=== PATIENT | male | born 1975 | race Caucasian/White ===

== ENCOUNTER → 2023-03-28 | Outpatient (CLI) | payer OTHER, SELFPAY ==
[~2023-03-28] MED LIST: LEVO-70 PO; LIDOCAINE HCL 1% 20 ML VIAL ONE; TAMS-1 PO
[2023-03-28 08:31] LABS: INR 0.96 (0.85-1.15); PROTHROMBIN TIME 10.5 SEC (9.6-11.6)
[2023-03-28 08:33] LABS: PARTIAL THROMBOPLASTIN TIME 29.9 SEC (26.3-35.5)
== END | disposition home or self-care (01) ==
LOC: CANSCHCLI → RAH 07:46
PROVIDERS: ATTEND Otolaryngology Plastic Surgery within the Head & Neck
DX: E04.1 Nontoxic single thyroid nodule (principal); Z79.01 Long term (current) use of anticoagulants
CPT/HCPCS: 10005; 36415; 76942; 85610; 85730; 88173; 88305

== ENCOUNTER → 2023-05-15 | Outpatient (CLI) | payer OTHER ==
[~2023-05-15] VITALS: Ht 175.3 cm; Wt 77.5 kg
[~2023-05-15] MED LIST changes: -LIDOCAINE HCL 1% 20 ML VIAL ONE
[2023-05-15 15:32] LABS: BASOPHILS # (AUTO) 0.06 K/uL (0.00-0.20); BASOPHILS % (AUTO) 1.2 % (0.0-5.0); EOSINOPHILS # (AUTO) 0.06 K/uL (0.00-0.70); EOSINOPHILS % (AUTO) 1.2 % (0.0-8.0); HEMATOCRIT 46.3 % (42-54); IMMATURE GRANULOCYTE ABSOLUTE 0.01 K/uL (0-1); LYMPHOCYTES # (AUTO) 1.7 K/uL (1.0-4.8); LYMPHOCYTES % (AUTO) 32.7 % (21.0-51.0); MEAN CORPUSCULAR HEMOGLOBIN 27.7 pg (27.0-33.0); MEAN CORPUSCULAR HGB CONC 32.6 g/dL (32.0-36.0); MONOCYTES # (AUTO) 0.6 K/uL (0.1-1.0); MONOCYTES % (AUTO) 11.4 % (3.0-13.0); NEUTROPHILS # (AUTO) 2.7 K/uL (1.8-7.7); NEUTROPHILS % (AUTO) 53.3 % (40.0-77.0); PLATELET COUNT (AUTO) 239 K/uL (130-400); RED BLOOD CELL COUNT(AUTO) 5.45 MIL/uL (4.50-6.20); RED CELL DISTRIBUTION WIDTH 13.2 % (11.0-15.5); WHITE BLOOD COUNT (AUTO) 5.1 K/uL (4.8-10.8)
[2023-05-15 15:42] LABS: CREATININE 0.9 mg/dL (0.5-1.5); POTASSIUM 3.9 mmol/L (3.5-5.1)
[2023-05-15 16:29] VITALS: BP 130/80; PULSE 85; RESP 16
== END | disposition home or self-care (01) ==
LOC: DAH 10:00 → EDSTATUS 14:00
PROVIDERS: ATTEND Otolaryngology
DX: Z01.818 Encounter for other preprocedural examination (principal); Z20.822 Contact with and (suspected) exposure to COVID-19; D34 Benign neoplasm of thyroid gland
CPT/HCPCS: 87426; 36415; 80048; 85025; A6260

== ENCOUNTER 2023-06-22 06:23 | Day surgery (SDC) | payer OTHER ==
[2023-06-21 09:19] VITALS: BP 120/77; PULSE 70; RESP 18
[2023-06-22] VITALS (18 sets, daily range): BP systolic 102–130; BP diastolic 63–86; PULSE 16–78; RESP 11–16
[~2023-06-22] VITALS: Ht 175.3 cm; Wt 80.7 kg
[~2023-06-22 06:23] MED LIST changes: -LEVO-70 PO; +VIBE75TA PO
[2023-06-22] MEDS ORDERED: LACTATED RINGERS 1000ML 1,000 ML IV ONE (06:57)
[2023-06-22] MEDS ORDERED: LIDOCAINE 1%-EPI 1:100,000 20 ML VIAL IJ ONE (07:03)
[2023-06-22] MEDS ORDERED: SUCCINYLCHOLINE CHLORIDE 20 MG/ML 10 ML VIAL ONE (07:22)
[2023-06-22] MEDS ORDERED: FENTANYL CITRATE PF 50 MCG/1 ML 2ML VIAL ONE (07:23)
[2023-06-22] MEDS ORDERED: LIDOCAINE PF 100MG/5ML (2%) SYRINGE 5ML ONE (07:23)
[2023-06-22] MEDS ORDERED: MIDAZOLAM HCL 1 MG/ML 2ML VIAL ONE (07:23)
[2023-06-22] MEDS ORDERED: PROPOFOL 10 MG/ML 20ML VIAL IV ONE (07:23)
[2023-06-22] MEDS ORDERED: KETAMINE 50MG/ML SYRINGE 50 MG/ML DISP.SYRIN ONE (07:41)
[2023-06-22] MEDS ORDERED: ROCURONIUM 10MG/1ML SYR 10 MG/ML ML ONE (07:51)
[2023-06-22] MEDS ORDERED: DEXAMETHASONE SOD PHOSPHATE 10MG/ML 1ML VIAL ONE (07:56)
[2023-06-22] MEDS ORDERED: CEFAZOLIN SODIUM 1 GM VIAL ONE ×2 (08:04→08:08)
[2023-06-22] MEDS ORDERED: LIDOCAINE HCL 4% LTA SOL 4 ML VIAL ONE (08:30)
[2023-06-22] MEDS ORDERED: PHENYLEPHRINE HCL 10 MG/ML 1ML VIAL IV ONE (08:43)
[2023-06-22] MEDS ORDERED: ONDANSETRON 4MG INJ ONE ×2 (09:09→09:39)
[2023-06-22] MEDS ORDERED: KETOROLAC 30MG VIAL (30MG/ML) ONE (09:13)
[2023-06-22] MEDS ORDERED: MEPERIDINE-PF 25 MG/ML SYG ONE ×2 (09:39→10:05)
== END 2023-06-22 11:15 | disposition home or self-care (01) ==
LOC: DAH 06:23
PROVIDERS: ATTEND Otolaryngology
DX: D34 Benign neoplasm of thyroid gland (principal); F41.9 Anxiety disorder, unspecified; Z98.890 Other specified postprocedural states
CPT/HCPCS: 60220; 88307; 88342; 88341 ×2; A4600; A6260; J7120; J3010; J0690 ×2; J3490 ×2; J1100; J0330; J2001; J2250; J2704; J2405 ×2; J1885; J2175 ×2; J2371; A4649 ×2; C1713 ×2; A4930; A4215; A4223; A4222; A4221; A4663

== ENCOUNTER 2024-01-06 12:51 | Emergency (ER) | payer OTHER ==
[~2024-01-06] VITALS: Ht 175.3 cm; Wt 74.8 kg
[2024-01-06 13:40] VITALS: BP 118/89; PULSE 83; RESP 18; O2SAT 98
[2024-01-06 13:49] LABS: APPEARANCE,URINE CLEAR (CLEAR); BILIRUBIN,URINE NEGATIVE (NEGATIVE); COLOR,URINE YELLOW (YELLOW); GLUCOSE, URINE (UA) NEGATIVE (NEGATIVE); KETONES,URINE NEGATIVE (NEGATIVE); LEUKOCYTE ESTERASE ,URINE NEGATIVE Leu/uL (NEGATIVE); NITRATE,URINE NEGATIVE (NEGATIVE); OCCULT BLOOD,URINE NEGATIVE (NEGATIVE); PH,URINE 5.5 (5.0-8.0); PROTEIN,URINE NEGATIVE (NEGATIVE); UROBILINOGEN,URINE 0.2 mg/dL (0.2-1.0)
[2024-01-06 13:50] LABS: ADD UA MICROSCOPIC NO
== END 2024-01-06 14:36 | disposition home or self-care (01) ==
LOC: EDH 12:51
DX: R30.0 Dysuria (principal); Z79.899 Other long term (current) drug therapy; Z98.890 Other specified postprocedural states
CPT/HCPCS: 81003